=== PATIENT | male | born 1965 | race American Indian/Alaskan Native ===

== ENCOUNTER 2017-08-11 11:17 | Emergency (ER) | payer OTHER ==
[2017-08-11 12:32] LABS: Hematocrit 36.6 % (35.5-45.6); Hemoglobin 12.6 gm/dl (11.8-15.2); Mean Corpuscular HGB Conc 35 % (32-34); Mean Corpuscular Hemoglobin 32 pg (28-32); Mean Corpuscular Volume 93 fl (84-94); Platelet Count 186 K/mm3 (140-440); Red Blood Count 3.91 M/mm3 (3.65-5.03); Red Cell Distribution Width 12.9 % (13.2-15.2)
--- NOTE | 2017-08-11 12:32 | Emergency Department Report ---
ED General Adult HPI - General Chief complaint: Overdose Stated complaint: POSS OVERDOSE Time Seen by Provider: 08/11/17 12:14 Source: patient, EMS Mode of arrival: Ambulatory Limitations: No Limitations - History of Present Illness Initial comments: Patient presents to the emergency department with local [facility] from [facility] for suicidal thoughts and suicidal attempt. Patient states that he is depressed and almost. He states that he took multiple medications including Celexa, Remeron, and Depakote. Patient states that he had ingested the medications around 9 AM this morning. States he's tried to kill himself by taking pills. Radiation: non-radiation Severity scale (0 -10): 0 Improves with: none Worsens with: none Associated Symptoms: denies other symptoms Treatments Prior to Arrival: none - Related Data Allergies Allergy/AdvReac Type Severity Reaction Status Date / Time No Known Allergies Allergy Verified 08/11/17 11:35 ED Review of Systems ROS: Stated complaint: POSS OVERDOSE Other details as noted in HPI Constitutional: denies: chills, fever Eyes: denies: eye pain, eye discharge, vision change ENT: denies: ear pain, throat pain Respiratory: denies: cough, shortness of breath, wheezing Cardiovascular: denies: chest pain, palpitations Endocrine: no symptoms reported Gastrointestinal: denies: abdominal pain, nausea, diarrhea Genitourinary: denies: urgency, dysuria Musculoskeletal: denies: back pain, joint swelling, arthralgia Skin: denies: rash, lesions Neurological: denies: headache, weakness, paresthesias Psychiatric: depression, suicidal thoughts. denies: anxiety, homicidal thoughts Hematological/Lymphatic: denies: easy bleeding, easy bruising ED Past Medical Hx - Past Medical History Previous Medical History?: Yes Hx Psychiatric Treatment: Yes (bipolar, schizo affective) - Surgical History Past Surgical History?: No - Social History Smoking Status: Never Smoker Substance Use Type: None ED Physical Exam - General Limitations: No Limitations General appearance: alert, in no apparent distress - Head Head exam: Present: atraumatic, normocephalic - Eye Eye exam: Present: normal appearance - ENT ENT exam: Present: mucous membranes moist - Neck Neck exam: Present: normal inspection - Respiratory Respiratory exam: Present: normal lung sounds bilaterally. Absent: respiratory distress - Cardiovascular Cardiovascular Exam: Present: regular rate, normal rhythm. Absent: systolic murmur, diastolic murmur, rubs, gallop - GI/Abdominal GI/Abdominal exam: Present: soft, normal bowel sounds - Rectal Rectal exam: Present: deferred - Extremities Exam Extremities exam: Present: normal inspection - Back Exam Back exam: Present: normal inspection - Neurological Exam Neurological exam: Present: alert, oriented X3 - Psychiatric Psychiatric exam: Present: depressed, flat affect, suicidal ideation - Skin Skin exam: Present: warm, dry, intact, normal color. Absent: rash ED Course Vital Signs 08/11/17 08/11/17 08/11/17 11:35 11:51 12:01 Temperature 97.5 F L Pulse Rate 67 67 Respiratory 16 24 Rate Blood Pressure 127/72 130/83 O2 Sat by Pulse 100 97 94 Oximetry 08/11/17 08/11/17 12:30 13:00 Temperature Pulse Rate 67 63 Respiratory 18 14 Rate Blood Pressure 127/76 109/71 O2 Sat by Pulse 98 100 Oximetry ED Medical Decision Making - Lab Data Result diagrams: 08/11/17 11:46 08/11/17 11:46 - EKG Data EKG shows normal: sinus rhythm Rate: normal (65 bpm) - Medical Decision Making Contacted poison control and they suggested that we repeat the Depakote 4 hours later and if it is trending down the patient can be discharged. [facility] and if the patient is medically cleared they can put the patient under suicide watch and isolating. If needed they can also contact a [facility] facility had the patient transferred their 1013 was rescinded at 5:40 PM Critical care attestation.: If time is entered above; I have spent that time in minutes in the direct care of this critically ill patient, excluding procedure time. ED Disposition Clinical Impression: Suicidal ideations Disposition: DC-01 TO HOME OR SELFCARE Is pt being admited?: No Condition: Stable Additional Instructions: Return if symptoms become worse Referrals: PRIMARY CAREMD [Primary Care Provider] - 3-5 Days Time of Disposition: 17:48
[2017-08-11 12:36] LABS: Bilirubin,Urine NEG (Negative); Blood,Urine SM (Negative); Color,Urine Yellow (Yellow); Nitrite,Urine NEG (Negative); Protein,Urine <15 mg/dL mg/dL (Negative); Urobilinogen,Urine < 2.0 mg/dL (<2.0)
[2017-08-11 12:41] LABS: BUN/Creatinine Ratio 10; Blood Urea Nitrogen 8 mg/dL (9-20); Hemolysis Index 10
[2017-08-11 12:45] LABS: Amphetamine Screen,Urine PRESUMPTIVE NEGATIVE; Benzodiazepines Screen,Urine PRESUMPTIVE NEGATIVE; Cannabinoid Screen,Urine PRESUMPTIVE NEGATIVE; Cocaine Screen,Urine PRESUMPTIVE NEGATIVE; Methadone Screen,Urine PRESUMPTIVE NEGATIVE; Opiate Screen,Urine PRESUMPTIVE NEGATIVE
[2017-08-11 13:26] LABS: WBC,Urine < 1.0 /HPF (0.0-6.0)
[2017-08-11 13:30] VITALS: BP 109/71
[2017-08-11 13:42] LABS: Alanine Aminotransferase 10 units/L (7-56); Albumin 4.4 g/dL (3.9-5)
[2017-08-11 13:55] LABS: Bilirubin,Direct < 0.2 mg/dL (0-0.2)
[2017-08-11 14:07] LABS: Basophils % (Manual) 0 % (0.0-1.8); Total Cells Counted 100
[2017-08-11 14:09] LABS: Platelet Estimate Consistent w Auto
== END 2017-08-11 17:59 | disposition home or self-care (01) ==
LOC: ED 11:17
DX: F31.9 Bipolar disorder, unspecified (principal); F20.9 Schizophrenia, unspecified
CPT/HCPCS: 36415; 80048; 80074; 80164; 80307; 81001; 83930; 85007; 85025; 93005; 93010; 99284; G0480; 80320

== ENCOUNTER 2020-05-12 04:24 | Emergency (ER) | payer SELFPAY | END 2020-05-12 08:53 | disposition left against medical advice (07) | LOC: ED 04:24 | DX: R05 Cough (principal); Z53.21 Procedure and treatment not carried out due to patient leaving prior to being seen by health care provider ==

== ENCOUNTER 2021-09-19 21:10 | Emergency (ER) | payer MEDICAID ==
[2021-09-20] MEDS ORDERED: LIDOCAINE (1%) 10 MG/1 ML VIAL 20 ML MDV INFILTRATI ONE (02:37)
[2021-09-20] MEDS ORDERED: SULFAMETHOXAZOLE/TRIMETHOPRIM 800/160MG DS TAB PO ONE (02:37)
[2021-09-20] MEDS ORDERED: oxyCODONE /ACETAMINOPHEN 5-325MG TAB PO ONE (02:37)
[2021-09-20] MEDS ORDERED: CLINDAMYCIN 300 MG CAP PO ONE (02:56)
--- NOTE | 2021-09-20 03:01 | Emergency Department Report ---
ED General Adult HPI - General Chief complaint: Skin/Abscess/Foreign Body Stated complaint: RT SHOULDER ABSCESS/SOB/FATIGUE Source: patient Mode of arrival: Ambulatory Limitations: No Limitations - History of Present Illness Initial comments: Patient is a 55-year-old -[place] male with a history of bipolar disorder and schizoaffective disorder who presents to the ED with complaint of acute onset persistent painful swollen mild erythematous maculopapular rash on posterior right shoulder for the last 1 week. Patient states that the pain is especially worsened in the last 3 days when she noticed that there was some purulent discharge draining from the wound. Patient states that he has not been able to sleep because of worsening pain. Patient denies fever, chills, chest pain, shortness of breath, abdominal pain, nausea and vomiting, dizziness, syncope, numbness and tingling or weakness of upper extremities bilaterally, traumatic injury or fall. MD Complaint: swollen painful rash on posterior right shoulder -: Sudden, week(s) (1) Location: back (posterior mid thoracic area of right shoulder), right, upper extremity (posterior right shoulder) Radiation: non-radiation Severity scale (0 -10): 8 Quality: aching, sharp Consistency: constant Improves with: none Worsens with: movement Associated Symptoms: denies other symptoms, rash (swollen painful rash on posterior right shoulder and mid posterior thoracic area). denies: confusion, chest pain, cough, diaphoresis, fever/chills, loss of appetite, malaise, nausea/vomiting, shortness of breath, syncope, weakness Treatments Prior to Arrival: none - Related Data Previous Rx's Medication Instructions Recorded Last Taken Type Clindamycin [Clindamycin CAP] 300 mg PO Q8H #30 cap 09/20/21 Unknown Rx Ibuprofen [Motrin] 800 mg PO Q8HR PRN #30 tablet 09/20/21 Unknown Rx Sulfamethoxazole/Trimethoprim 1 each PO Q12H #20 tab 09/20/21 Unknown Rx [Bactrim DS TAB] traMADoL [Ultram] 50 mg PO Q6HR PRN #12 tablet 09/20/21 Unknown Rx Allergies Allergy/AdvReac Type Severity Reaction Status Date / Time No Known Allergies Allergy Verified 08/11/17 11:35 ED Review of Systems ROS: Stated complaint: RT SHOULDER ABSCESS/SOB/FATIGUE Other details as noted in HPI Constitutional: denies: chills, fever Eyes: denies: eye pain, eye discharge, vision change ENT: denies: ear pain, throat pain Respiratory: denies: cough, shortness of breath, wheezing Cardiovascular: denies: chest pain, palpitations Endocrine: no symptoms reported Gastrointestinal: denies: abdominal pain, nausea, diarrhea Genitourinary: denies: urgency, dysuria Musculoskeletal: arthralgia (Posterior right shoulder pain due to mild erythematous maculopapular rash). denies: back pain, joint swelling Skin: rash (Mild erythematous maculopapular rash on posterior right shoulder). denies: lesions Neurological: denies: headache, weakness, paresthesias Psychiatric: denies: anxiety, depression Hematological/Lymphatic: denies: easy bleeding, easy bruising ED Past Medical Hx - Past Medical History Hx Psychiatric Treatment: Yes (bipolar, schizo affective) - Social History Smoking Status: Current Every Day Smoker Substance Use Type: Alcohol - Medications Home Medications: Home Medications Medication Instructions Recorded Confirmed Last Taken Type Clindamycin [Clindamycin CAP] 300 mg PO Q8H #30 cap 09/20/21 Unknown Rx Ibuprofen [Motrin] 800 mg PO Q8HR PRN #30 tablet 09/20/21 Unknown Rx Sulfamethoxazole/Trimethoprim 1 each PO Q12H #20 tab 09/20/21 Unknown Rx [Bactrim DS TAB] traMADoL [Ultram] 50 mg PO Q6HR PRN #12 tablet 09/20/21 Unknown Rx ED Physical Exam - General Limitations: No Limitations General appearance: alert, in no apparent distress - Head Head exam: Present: atraumatic, normocephalic, normal inspection - Eye Eye exam: Present: normal appearance, PERRL, EOMI Pupils: Present: normal accommodation - ENT ENT exam: Present: normal exam, normal orophraynx, mucous membranes moist, TM's normal bilaterally, normal external ear exam - Neck Neck exam: Present: normal inspection, full ROM. Absent: tenderness - Respiratory Respiratory exam: Present: normal lung sounds bilaterally. Absent: respiratory distress, wheezes, rales, rhonchi, chest wall tenderness, accessory muscle use, decreased breath sounds, prolonged expiratory - Cardiovascular Cardiovascular Exam: Present: regular rate, normal rhythm, normal heart sounds. Absent: systolic murmur, diastolic murmur, rubs, gallop - GI/Abdominal GI/Abdominal exam: Present: soft, normal bowel sounds. Absent: tenderness, guarding, rebound, hyperactive bowel sounds, hypoactive bowel sounds - Extremities Exam Extremities exam: Present: normal inspection, full ROM, tenderness (Palpable posterior right shoulder tenderness due to localized mild erythematous maculopapular fluctuant rash on posterior right shoulder), normal capillary refill - Back Exam Back exam: Present: normal inspection, full ROM. Absent: tenderness, CVA tenderness (R), CVA tenderness (L), muscle spasm, paraspinal tenderness, vertebral tenderness - Neurological Exam Neurological exam: Present: alert, oriented X3, CN II-XII intact, normal gait, reflexes normal - Psychiatric Psychiatric exam: Present: normal affect, normal mood - Skin Skin exam: Present: warm, dry, intact, rash (Mild erythematous maculopapular fluctuant rash on posterior right shoulder with fluctuance), erythema. Absent: normal color ED Course Vital Signs 09/19/21 09/20/21 21:15 03:12 Temperature 98.0 F Pulse Rate 77 72 Respiratory 18 18 Rate Blood Pressure 146/90 Blood Pressure 139/81 [Left] O2 Sat by Pulse 98 99 Oximetry - I & D Right Posterior Shoulder Type of Procedure: Simple Site: posterior right shoulder Blade Size: 11 I & D Procedure: betadine prep, sterile drapes applied, sterile dressing applied, gauze wick placed Progress: The area was cleaned extensively with normal saline and Betadine solution and lidocaine 1% solution was used to infiltrate around the area for local anesthesia. When anesthesia was fully achieved, the area was incised and drained with scalpel blade #11. Take purulent malodorous discharge drained from the wound. The wound was extensively debrided with normal saline and flocculation broken with hemostat. The wound was then packed with iodoform quarter inch gauze and dressed with 4 x 4 gauzes and Tegaderm. Patient tolerated the procedure well. ED Medical Decision Making - Medical Decision Making This is a 55-year-old -[place] male with a history of bipolar disorder and schizoaffective disorder who presents to the ED with complaint of acute onset persistent painful swollen mild erythematous maculopapular rash on posterior right shoulder for the last 1 week. Patient states that the pain is especially worsened in the last 3 days when she noticed that there was some purulent discharge draining from the wound. Patient states that he has not been able to sleep because of worsening pain. In the ED, patient is alert and oriented x3 and is not in any distress. Patient was treated for pain in the ED and also given initial oral antibiotics. The area was cleaned extensively with normal saline and Betadine solution and lidocaine 1% solution was used to infil trate around the area for local anesthesia. When anesthesia was fully achieved, the area was incised and drained with scalpel blade #11. Take purulent malodorous discharge drained from the wound. The wound was extensively debrided with normal saline and flocculation broken with hemostat. The wound was then packed with iodoform quarter inch gauze and dressed with 4 x 4 gauzes and Tegaderm. Patient tolerated the procedure well. On reevaluation, patient's pain is well controlled medication. Patient was discharged home on medications and advised to follow-up with his primary care physician in 7 to 10 days for reevaluation. Patient was advised return to the ED immediately if symptoms get worse. - Differential Diagnosis Cellulitis; cutaneous abscess; acute folliculitis Critical care attestation.: If time is entered above; I have spent that time in minutes in the direct care of this critically ill patient, excluding procedure time. ED Disposition Clinical Impression: Cutaneous abscess of back excluding buttocks, Cellulitis of upper back excluding scapular region Disposition: 01 HOME / SELF CARE / HOMELESS Is pt being admited?: No Does the pt Need Aspirin: No Condition: Stable Instructions: Skin Abscess, [id number], Cellulitis, Adult, [id number] Additional Instructions: Take medication with food, drink plenty fluids and follow-up with your primary care physician in 7 to 10 days for reevaluation. Return to the ED immediately if symptoms get worse. Prescriptions: Sulfamethoxazole/Trimethoprim [Bactrim DS TAB] 1 each PO Q12H #20 tab Clindamycin [Clindamycin CAP] 300 mg PO Q8H #30 cap Ibuprofen [Motrin] 800 mg PO Q8HR PRN #30 tablet PRN Reason: Pain , Severe (7-10) traMADoL [Ultram] 50 mg PO Q6HR PRN #12 tablet PRN Reason: Pain Referrals: ESTEFANY COLLIER MD [Primary Care Provider] - 7-10 days Time of Disposition: 02:59 Print Language: CROATIAN
[2021-09-20 03:13] VITALS: BP 139/81
== END 2021-09-20 03:13 | disposition home or self-care (01) ==
LOC: ED 21:10
DX: L02.212 Cutaneous abscess of back [any part, except buttock and flank] (principal); L03.312 Cellulitis of back [any part except buttock and flank]
CPT/HCPCS: 10060; 99282; J3490